=== PATIENT | female | born 1965 | race Caucasian/White ===

== ENCOUNTER → 2018-05-11 14:36 | Outpatient (CLI) | payer OTHER, SELFPAY ==
--- NOTE | 2018-05-11 | DI.US.S_ITS ---
PROCEDURE: US PELVIC COMPLETE INDICATIONS: LEFT LOWER QUADRANT PAIN TECHNIQUE: Real-time scanning was performed of the pelvic organs, with image documentation. Additional endovaginal scanning was necessary due to incomplete visualization of the adnexal and endometrial structures by transabdominal scanning. COMPARISON: None. FINDINGS: Transabdominal scanning: Limited scanning through the kidneys shows no hydronephrosis. No pathologic free abdominal or pelvic fluid. Endovaginal scanning: Uterus: Surgically absent. Reportedly a portion of the cervix remains, measuring approximately 1.7 x 1.2 x 2.2 cm at the upper vaginal fornix, morphologically and nonspecific. Ovaries: Numerous bilaterally could not be seen likely due to postmenopausal ovarian atrophy and overlying bowel gas. IMPRESSION: Prior hysterectomy, ovaries not visualized. What appears to be a portion of the cervix remains at the upper vaginal fornix. A definite source of reported vaginal bleeding is not found. Gynecological consultation is is anticipated. Dictated by: Ezio Bradford M.D. on 05/11/2018 at 16:16 Approved by: Ezio Bradford M.D. on 05/11/2018 at 16:19
== END ==
PROVIDERS: PCP Physician Assistant Medical; Visit Provider Physician Assistant Medical
DX: R10.32 Left lower quadrant pain (principal)
CPT/HCPCS: 76830; 76856

== ENCOUNTER 2018-05-23 14:29 | Day surgery (SDC) | payer OTHER, SELFPAY ==
--- NOTE | 2018-05-23 | PATH_ITS ---
[facility] Accession Number: [id number] . 01 Material submitted: . RANDOM COLON BIOPSIES . 02 Diagnosis: Random Colon Biopsies: Multiple fragments of normal appearing colon mucosa, several having prominent mucosal lymphoid aggregates. Negative for significant architectural distortion. Negative for significant inflammation, dysplasia and malignancy. MRV/05/25/2018 . 02 Electronically signed: . Jung Sheehan MD, Pathologist NPI- [id number] . 01 Gross description: . RANDOM COLON BIOPSIES: Received in formalin are multiple fragment(s) of hernadez, soft tissue measuring 1.1 x 0.6 x 0.3 cm in aggregate submitted entirely in 1 cassette(s) /CKI /CKI . 02 Pathologist provided ICD-10: R19.7 . 02 CPT . 066840 Specimen Comment: A duplicate report has been generated due to demographic updates. Performed at: 01 [facility] [address] [facility], [place], [place] [id number] MD Corby Beatty MD Phone: [phone] Performed at: [facility] [address] [place], [place] [id number] MD Jun Foy MD Phone: [phone]
[2018-05-23 14:46] VITALS: BP 133/85; PULSE 96; RESP 16; TEMP 36.6; O2SAT 96; BMI 30.2
[2018-05-23] MEDS: LACTATED RINGERS 1,000 ML 200 ML IV (14:50)
--- NOTE | 2018-05-23 15:15 | PM.PREOP ---
Pre-operative Note Interval Note Pre-op Check: Yes History & Physical Reviewed by Physician Changes: No
[2018-05-23] MEDS: ONDANSETRON 4 MG/2 ML INJ IV (15:32)
--- NOTE | 2018-05-23 15:54 | PM.OP.1 ---
Operative Date/Time/Diagnoses Date of procedure: 05/23/18 Time of procedure: 15:54 Pre-op diagnosis: Chronic diarrhea Post-op diagnosis: same Procedure & Clinicians Procedure: Colonoscopy to the cecum with random biopsies and cultures Same procedure as scheduled: Yes Indications: Chronic diarrhea Surgeon: Mally Saldivar Click Yes if Unassisted: Yes Anesthesia Type: Sedation (Versed 14 mg; fentanyl 350 mcg; Zofran 4 mg) Operative Notes Findings: 1. Adequate prep 2. No polyps or mass lesions 3. No AV malformations 4. Visually normal mucosa 5. Diverticulosis from the sigmoid rectal junction to the hepatic flexure with a mixture of large and small pockets. No overt evidence of infection or hemorrhage. 6. Grade 2 internal hemorrhoids Closure Type: not applicable Specimen(s): other (Cultures and random biopsies) Estimated Blood Loss (mL): 2 Procedure in detail: After obtaining informed consent, the patient was brought to the GI suite and placed in the left lateral decubitus position on the examination table. After placement of appropriate monitors, the patient was given incremental doses of Versed and Fentanyl until an appropriate level of sedation was achieved. A time out was held per SCOAP protocol. A digital rectal examination was performed and did not reveal any masses or obstructing lesions. The colonoscope was gently passed into the patient's anus and the entire colon navigated to the level of the cecum with minimal difficulty. Once in the cecum, the scope was withdrawn being sure to go before and beyond all mucosal folds and prominences and get an excellent examination. The findings are noted above. We took multiple random biopsies starting at the cecum and continuing to the rectal vault. The mucosal surface throughout the colon was essentially normal in appearance. Stool was aspirated from the colon and submitted for culture, O& P examination, and C diff. At the level of the rectal vault, the scope was retroflexed and the internal anal canal was examined. The scope was straightened and air aspirated from the colon. The instrument was removed from the patient's body and the procedure was concluded. The patient was allowed to awaken from sedation without difficulty and taken to the post-anesthesia care unit in good condition. Total sedation time was 32 min Total withdrawal time was 17 min 19 sec Complications: none Condition: stable Disposition: PACU Plan for aftercare: 1. Discharge to home 2. We will contact you with pathology results and any further recommendations.
[2018-05-23 16:01] VITALS: BP 128/81; PULSE 82; RESP 14; TEMP 36.7; O2SAT 92
[2018-05-23 16:06] VITALS: BP 115/72; PULSE 89; RESP 12; TEMP 37; O2SAT 97
[2018-05-23 16:10] VITALS: BP 126/84; PULSE 91; RESP 16; TEMP 36.8; O2SAT 95
[2018-05-23 19:07] LABS: Clostridium Difficile Tox PCR Negative for C.diff
== END 2018-05-23 16:25 | disposition home or self-care (01) ==
PROVIDERS: PCP Physician Assistant Medical; Visit Provider Surgery
PROC: 0DJD8ZZ Inspection of Lower Intestinal Tract, Via Natural or Artificial Opening Endoscopic (ICD-10-PCS; CPT 45378; principal; 2018-05-23 16:00)
DX: K52.9 Noninfective gastroenteritis and colitis, unspecified (principal); K64.1 Second degree hemorrhoids; K57.30 Diverticulosis of large intestine without perforation or abscess without bleeding; F17.210 Nicotine dependence, cigarettes, uncomplicated
CPT/HCPCS: 45380; 87015; 87045; 87177; 87427; 87493; 87899; 88305; 99152; 99153; J2405

== ENCOUNTER → 2019-09-05 13:02 | Outpatient (CLI) | payer OTHER, SELFPAY ==
--- NOTE | 2019-09-05 | DI.CT.S_ITS ---
PROCEDURE: CT ABDOMEN W CON INDICATIONS: Gross hematuria. Renal mass TECHNIQUE: After the administration of intravenous contrast, 5 mm thick sections acquired from the diaphragm to the iliac crests. 5 mm coronal and sagittal reformats were performed. For radiation dose reduction, the following was used: automated exposure control, adjustment of mA and/or kV according to patient size. COMPARISON: Outside Film, CT, CT ABDOMEN PELVIS WITHOUT CONTRAST, 07/24/2019, 11:40. FINDINGS: Image quality: Excellent. Lung bases: Lung bases are clear. Heart size is normal. Solid organs: Liver is normal in size and enhancement. Gallbladder has been previously resected. Biliary system is non dilated. Pancreas enhances normally. Spleen is normal in size and enhancement. No adrenal nodules. Kidneys demonstrate normal size and enhancement, without hydronephrosis. Peritoneum and bowel: Bowel loops demonstrate normal wall thickness and caliber. No free fluid or air. Nodes and vessels: No retroperitoneal or mesenteric adenopathy by size criteria. Aorta and inferior vena cava are normal in size. Miscellaneous: No ventral hernias. IMPRESSION: Source of reported gross hematuria is not found. A renal mass is not seen on the post contrast imaging. There is mild renal cortical lobulation as a normal variant as potential cause of suspicion for presence of a renal mass on noncontrast CT scanning. Dictated by: Ezio Bradford M.D. on 09/05/2019 at 16:29 Approved by: Ezoi Bradford M.D. on 09/05/2019 at 16:33
--- NOTE | 2019-09-05 | DI.CT.S_ITS ---
PROCEDURE: CT KIDNEY URETER BLADDER (KUB) INDICATIONS: Gross hematuria TECHNIQUE: Noncontrast 5 mm thick sections acquired from the diaphragms to the symphysis. 5 mm thick coronal and sagittal reformats were then performed. For radiation dose reduction, the following was used: automated exposure control, adjustment of mA and/or kV according to patient size. COMPARISON: [facility], CT, CT ABDOMEN W CON, 09/05/2019, 13:14. FINDINGS: Image quality: Excellent. Lung bases: Lung bases are clear. Heart size is normal. Urinary system: Both kidneys are normal in size. No kidney stones. No hydronephrosis or perinephric fat stranding. Both ureters appear non-dilated throughout their expected courses. The bladder is empty, quality visualization of the bladder lumen and wall therefore is reduced. Other solid organs: Liver is normal in size. Gallbladder has been previously resected. Pancreas is normal in contours. Spleen is normal in size. No adrenal nodules. Peritoneum and bowel: Unenhanced bowel loops demonstrate normal wall thickness and caliber. No free fluid or air. Nodes and vessels: No retroperitoneal or mesenteric adenopathy by size criteria. Aorta and inferior vena cava are normal in caliber. Abdominal wall: No ventral hernias. Pelvis: No free pelvic fluid. No inguinal hernias or adenopathy. Bones: No suspicious bony lesions. No vertebral body compression fractures. IMPRESSION: A source of reported gross hematuria is not found. No urinary tract stone or mass is identified. Quality visualization of the bladder wall is very limited by the bladder being empty at time of CT scanning. Dictated by: Ezio Bradford M.D. on 09/05/2019 at 16:26 Approved by: Ezio Bradford M.D. on 09/05/2019 at 16:29
[2019-09-05 13:39] LABS: Blood Urea Nitrogen 9 mg/dL (7-17); Estimated Glomerular Filt Rate > 60.0 mL/min (>60)
== END ==
PROVIDERS: PCP Physician Assistant Medical; Visit Provider Physician Assistant
DX: R31.0 Gross hematuria (principal); N28.89 Other specified disorders of kidney and ureter; N20.0 Calculus of kidney; Z90.49 Acquired absence of other specified parts of digestive tract
CPT/HCPCS: 36415; 74160; 74176; 82565; 84520